=== PATIENT | male | born 1985 | race Caucasian/White ===

== ENCOUNTER 2016-11-05 21:54 | Emergency (ER) | payer MEDICAID, OTHER ==
[~2016-11-05] VITALS: Ht 175.3 cm; Wt 117.8 kg
[~2016-11-05 21:54] MED LIST: INSU100C3 SQ; SERT25TA PO
[2016-11-05] MEDS ORDERED: FAMOTIDINE 20MG/2ML VIAL IV STA (23:27)
[2016-11-05] MEDS ORDERED: SODIUM CHLORIDE 0.9% 1,000 ML IV ONE (23:27)
[2016-11-05] MEDS ORDERED: ONDANSETRON HCL 4MG/2ML VIAL IV STA (23:27)
[2016-11-05] MEDS ORDERED: MORPHINE SULFATE 4 MG/ML CPJ (NOT FOR IM USE) IV STA (23:27)
[2016-11-05] MEDS ORDERED: ASPIRIN 81MG TABLET PO ONE (23:30)
[2016-11-05 23:55] LABS: EOSINOPHILS % 1.8 % (0.0-5.0); HEMATOCRIT. 36.1 % (42.0-52.0); HEMOGLOBIN. 11.8 g/dL (14.0-18.0); LYMPHOCYTES % 35.5 % (20.0-50.0); MEAN CORPUSCULAR HEMOGLOBIN 25.4 pg (28.0-32.0); MEAN PLATELET VOLUME 8.1 fl (7.4-10.4); MONOCYTES % 7.2 % (2.0-8.0); NEUTROPHILS % 53.5 % (40.0-76.0); PLATELET 535 x1000/uL (130-400); RED BLOOD CELL COUNT 4.63 mill/uL (4.7-6.1); RED CELL DISTRIBUTION WIDTH 18.9 % (11.6-14.6)
[2016-11-06 00:06] LABS: AMMONIA 41 uMol/L (<32)
[2016-11-06 00:13] LABS: CARBON DIOXIDE 25 mEq/L (21-32); CHLORIDE 108 mEq/L (98-107); ETHANOL BLOOD < 10 mg/dL; TROPONIN I < 0.02 ng/mL (0.00-0.04)
[2016-11-06] MEDS ORDERED: LACTULOSE 20G/30ML UDC PO NR (02:15)
[2016-11-06] MEDS ORDERED: KETOROLAC 30MG/ML VIAL IV STA (04:22)
[2016-11-06 06:37] VITALS: BP 135/98
== END 2016-11-06 06:47 | disposition home or self-care (01) ==
LOC: ER 21:54
DX: R00.2 Palpitations (principal); R07.89 Other chest pain; I10 Essential (primary) hypertension; R10.84 Generalized abdominal pain; N28.1 Cyst of kidney, acquired; N20.0 Calculus of kidney; E11.9 Type 2 diabetes mellitus without complications; I45.10 Unspecified right bundle-branch block; F17.210 Nicotine dependence, cigarettes, uncomplicated; Z79.4 Long term (current) use of insulin; Z87.19 Personal history of other diseases of the digestive system; Z86.59 Personal history of other mental and behavioral disorders; Z90.49 Acquired absence of other specified parts of digestive tract
CPT/HCPCS: 36415; 70450; 71010; 74176; 80053; 80307; 80329; 82140; 83690; 83880; 84443; 84484; 85025; 93005; 96361; 96374; 96375; 99285; G0482; J1885; J2405; J3490; J7030; Z7610; J2270